=== PATIENT | female | born 1945 | race Caucasian/White ===

== ENCOUNTER 2017-07-25 15:43 | Emergency (ER) | payer MEDICARE ==
[2017-07-25] MEDS ORDERED: IOPAMIDOL-370 75 ML VIAL IV ONE (18:59)
[2017-07-25 19:03] LABS: BASOPHILS % (AUTO) 0.7 % (0.0-5.0); EOSINOPHILS % (AUTO) 2.2 % (0.0-8.0); HEMATOCRIT 46.6 % (36-48); LYMPHOCYTES % (AUTO) 15.3 % (21.0-51.0); MEAN CORPUSCULAR HEMOGLOBIN 29.6 pg (27.0-33.0); MEAN CORPUSCULAR HGB CONC 34.2 g/dL (32.0-36.0); MEAN CORPUSCULAR VOLUME 86.6 fL (79-99); MONOCYTES % (AUTO) 12.4 % (3.0-13.0); NEUTROPHILS % (AUTO) 69.4 % (40.0-77.0); PLATELET COUNT (AUTO) 200 K/uL (130-400); RED BLOOD CELL COUNT(AUTO) 5.38 MIL/uL (4.00-5.50); RED CELL DISTRIBUTION WIDTH 13.5 % (11.0-15.5); WHITE BLOOD COUNT (AUTO) 7.8 K/uL (4.8-10.8)
[2017-07-25 19:12] LABS: CREATININE 1.5 mg/dL (0.5-1.5); POTASSIUM 4.1 mmol/L (3.5-5.1)
[2017-07-25 19:17] LABS: BILIRUBIN,DIRECT 0.1 mg/dL (0.0-0.3); BILIRUBIN,TOTAL 0.5 mg/dL (0.2-1.0); TOTAL PROTEIN, SERUM 6.9 g/dL (6.0-8.3)
[2017-07-25] MEDS ORDERED: SODIUM CHLORIDE 0.9% 500ML 500 ML IV ONE (19:49)
[2017-08-03] MEDS ORDERED: ALBU6.7H IH (15:26)
[2017-08-03] MEDS ORDERED: SPIR50TA3 PO (15:26)
[2017-08-03] MEDS ORDERED: LEVO125T11 PO (15:26)
[2017-08-03] MEDS ORDERED: HYDR200T4 PO (15:26)
[2017-08-03] MEDS ORDERED: OMEP20TA2 PO (15:26)
[2017-08-03] MEDS ORDERED: BUPR-47 PO (15:26)
[2017-08-03] MEDS ORDERED: LEVO125 PO (15:28)
[2017-08-04] MEDS ORDERED: CYAN1000I IM (07:24)
[2017-08-04] MEDS ORDERED: LID5O TP (07:26)
[2017-08-04] MEDS ORDERED: CHOL100040 PO (07:27)
== END 2017-07-25 21:07 | disposition home or self-care (01) ==
LOC: EDH 15:43
DX: R19.09 Other intra-abdominal and pelvic swelling, mass and lump (principal); R60.0 Localized edema; I10 Essential (primary) hypertension; E78.5 Hyperlipidemia, unspecified; E07.9 Disorder of thyroid, unspecified; K21.9 Gastro-esophageal reflux disease without esophagitis; M19.90 Unspecified osteoarthritis, unspecified site; J45.909 Unspecified asthma, uncomplicated; Z88.6 Allergy status to analgesic agent; Z98.890 Other specified postprocedural states
CPT/HCPCS: 36415; 72193; 73701; 80048; 80076; 83690; 85025; 93971; 96360; 99285; J7040; Q9967

== ENCOUNTER → 2018-07-05 | Outpatient (CLI) | payer MEDICARE ==
[~2018-07-05] MED LIST: ALBU6.7H IH; BUPR-47 PO; CHOL100040 PO; CYAN1000I IM; HYDR200T4 PO; LEVO125 PO; LID5O TP; OMEP20TA2 PO; SPIR50TA5 PO
== END | disposition home or self-care (01) ==
LOC: OIH 13:03
PROVIDERS: ATTEND Internal Medicine
DX: M17.0 Bilateral primary osteoarthritis of knee (principal); M19.071 Primary osteoarthritis, right ankle and foot; M19.072 Primary osteoarthritis, left ankle and foot; M19.042 Primary osteoarthritis, left hand; M19.041 Primary osteoarthritis, right hand; M06.4 Inflammatory polyarthropathy
CPT/HCPCS: 73120; 73560; 73620

== ENCOUNTER → 2023-05-12 | Outpatient (CLI) | payer MEDICARE ==
[~2023-05-12] MED LIST changes: -ALBU6.7H IH; +ALBU6.7H14 IH; -BUPR-47 PO; +BUPR-49 PO; -HYDR200T4 PO; +HYDR200T75 PO
== END | disposition home or self-care (01) ==
LOC: RAH 08:00
PROVIDERS: ATTEND Family Medicine Adult Medicine
DX: S80.12XA Contusion of left lower leg, initial encounter (principal); S70.02XA Contusion of left hip, initial encounter; K57.90 Diverticulosis of intestine, part unspecified, without perforation or abscess without bleeding; X58.XXXA Exposure to other specified factors, initial encounter; Y93.89 Activity, other specified; Y92.89 Other specified places as the place of occurrence of the external cause; Y99.8 Other external cause status
CPT/HCPCS: 73718; 73721

== ENCOUNTER → 2023-08-18 | Outpatient (CLI) | payer MEDICARE | END | disposition home or self-care (01) | LOC: RAH 09:57 | PROVIDERS: ATTEND Family Medicine Adult Medicine | DX: K80.20 Calculus of gallbladder without cholecystitis without obstruction (principal); I65.23 Occlusion and stenosis of bilateral carotid arteries | CPT/HCPCS: 76700; 93880 ==

== ENCOUNTER 2025-03-01 12:38 | Emergency (ER) | payer MEDICARE ==
[~2025-03-01] VITALS: Ht 162.6 cm; Wt 78.9 kg
--- NOTE | 2025-03-01 13:01 | ERN ---
General Chief Complaint: Fatigue Stated Complaint: FATIGUE Time Seen by MD: 12:54 History of Present Illness Initial Comments 79-year-old female, history of aortic valve replacement (noninvasive) in March of 2024. Reports dyspnea since her procedure. She reports chest tightness and difficulty taking deep respirations. She reports that this has been going on for months now, but it has been worsening. She is now at a point where she can not walk up to the car without getting short of breath. She is having difficulty sleeping. No swelling. No fevers or cough. She describes it as a chest tightness and inability to take a deep breath. She reports she has gone to a scanner supervisor and had multiple studies done. They were treating her as an asthmatic. She went to her machine heel builder earlier today and was sent here for evaluation. Vital signs are stable. Allergies: Coded Allergies: codeine (Unverified Allergy, Unknown, 08/03/17) latex (Unverified Allergy, Unknown, 08/03/17) Home Meds Reported Medications Cholecalciferol (Vitamin D3) (Vitamin D3) 1,000 Unit Capsule, 1000 UNIT PO AM, CAP 08/04/17 Lidocaine HCl (Lidocaine HCl 5% Oint 36Gm) 1 Appl/Gm Oint, 1 APPL TP BID PRN for PAIN LEVEL 1 TO 5, APPL 08/04/17 Cyanocobalamin (Vitamin B-12) 1,000 Mcg/Ml Inj, 1000 MCG IM QMONTH, ML 08/04/17 Levothyroxine Sodium (Levothroid/Synthroid) 125 Mcg Tab, 125 MCG PO DAILY, TAB 08/03/17 Bupropion HCl (Bupropion Xl) 150 Mg Tab.er.24h, 150 MG PO BID, TAB 08/03/17 Hydroxychloroquine Sulfate (Hydroxychloroquine Sulfate) 200 Mg Tablet, 200 MG PO BID, TAB 08/03/17 Albuterol Sulfate (Proventil Hfa) 6.7 Gm Hfa.aer.ad, 1 PUFF IH Q6HPRN 08/03/17 Spironolactone (Spironolactone) 50 Mg Tablet, 50 MG PO DAILY, TAB 08/03/17 Omeprazole Magnesium (Prilosec Otc) 20 Mg Tablet.dr, 20 MG PO DAILY, TAB 08/03/17 Past Medical History Past Medical History: Arthritis, Diabetes-Type II, High Cholesterol, Heart Disease, Hypertension Past Surgical History: Other Surgical History Other: AORTIC VALVE REPLACEMENT ROS Dictation CONSTITUTIONAL: No chills, no fever, no weakness, no diaphoresis, no malaise. HEAD/FACE: No signs of trauma. EENT: No eye pain, no blurred vision, no tearing, no double vision, no ear pain, no ear discharge, no nose pain, no nasal congestion, no throat pain, no throat swelling, no mouth pain. RESPIRATORY: Dyspnea, chest tightness CARDIOVASCULAR: No chest pain, no edema, no palpitations, no syncope. GASTROINTESTINAL/ABDOMINAL: No abdominal pain, no constipation, no diarrhea, no nausea, no vomiting. GENITOURINARY: No abnormal discharge, no dysuria, no frequent urination, no hematuria. No complaints of pain in the genitals. MUSCULOSKELETAL: No back pain, no gout, no joint pain, no joint swelling, no muscle pain, no muscle stiffness, no neck pain. INTEGUMENTARY: No change in color, no change in hair/nails, no dryness, no lesion, no lumps, no rash. NEUROLOGICAL/PSYCH: No anxiety, not depressed, no emotional problem, no headache, no numbness, no pre-existing deficit, no history of seizures, no tremors, no weakness. HEMATOLOGIC/LYMPHATIC: Not anemic, no history of blood clots, no apparent bleeding, no bruising, glands not swollen. All Systems Negative, Except as Noted. Physical Exam Physical Exam Dictation VITAL SIGNS: Reviewed. GENERAL APPEARANCE: Alert, oriented x3, no acute distress. HEAD AND FACE: Non-traumatic. EYES: PERRL, pink conjunctivas, eyelid no trauma, anterior chamber clear. EARS: Pinnas intact and no signs of trauma or erythema. Ear canals clear and no discharge. TMs no erythema. NOSE: No discharge, no bleeding. OROPHARYNX: Mouth normal, teeth no caries, tongue pink. Pharynx clear, no erythema. Tonsils no exudates, no abscesses noted. Mucous membrane moist. NECK: Supple, non-tender, no thyromegaly, no masses, no JVD, no bruits. BREAST: Deferred. CHEST: No tenderness, no crepitus, no paradoxical movement, no retractions. LUNGS: Clear, well-ventilated, symmetric, no rales, no wheezing, no rhonchi, no stridor, good breath sounds bilaterally. HEART: Regular rate, regular rhythm, no murmur, no gallops. VASCULAR: No peripheral edema. ABDOMEN: Soft, positive bowel sounds, nondistended, no guarding, nontender, no rebound, no masses no hepatomegaly, no splenomegaly, no Fletcher's sign, no hernias. RECTAL: Deferred. GENITAL: Deferred. NEUROLOGICAL: Normal speech, gross motor function intact, gross sensory function intact. MUSCULOSKELETAL: Neck nontender, full range of motion, back nontender, full range of motion. EXTREMITIES: Nontender, full range of motion. SKIN: Color pink, dry, no turgor, no rash, no lacerations, no abrasions, no contusions. LYMPHATICS: Deferred. Results Laboratory and Microbiology Lab and Micro Result Laboratory Tests Test 03/01/25 13:24 03/01/25 13:50 White Blood Count 7.7 K/uL (4.8-10.8) Red Blood Count 4.66 MIL/uL (4.00-5.50) Hemoglobin 13.7 g/dL (12.0-16.0) Hematocrit 41.8 % (36-48) Mean Corpuscular Volume 89.7 fL (79-99) Mean Corpuscular Hemoglobin 29.4 pg (27.0-33.0) Mean Corpuscular Hemoglobin Concent 32.8 g/dL (32.0-36.0) Red Cell Distribution Width 12.9 % (11.0-15.5) Platelet Count 129 K/uL (130-400) L Mean Platelet Volume 9.6 fL (7.5-10.5) Immature Granulocyte % (Auto) 0.4 % (0-1) Neutrophils (%) (Auto) 69.5 % (40.0-77.0) Lymphocytes (%) (Auto) 16.5 % (21.0-51.0) L Monocytes (%) (Auto) 10.1 % (3.0-13.0) Eosinophils (%) (Auto) 3.0 % (0.0-8.0) Basophils (%) (Auto) 0.5 % (0.0-5.0) Neutrophils # (Auto) 5.4 K/uL (1.8-7.7) Lymphocytes # (Auto) 1.3 K/uL (1.0-4.8) Monocytes # (Auto) 0.8 K/uL (0.1-1.0) Eosinophils # (Auto) 0.23 K/uL (0.00-0.70) Basophils # (Auto) 0.04 K/uL (0.00-0.20) Absolute Immature Granulocyte (auto 0.03 K/uL (0-1) Nucleated Red Blood Cells 0.0 % (0.0-0.19) Erythrocyte Sedimentation Rate 11 MM/HR (0-30) D-Dimer Quantitative (PE/DVT) 1734 ng/mL (0-500) *H Sodium Level 138 mmol/L (136-145) Potassium Level 4.3 mmol/L (3.5-5.1) Chloride Level 102 mmol/L (101-111) Carbon Dioxide Level 26 mmol/L (21-32) Blood Urea Nitrogen 21 mg/dL (7-18) H Creatinine 1.3 mg/dL (0.5-1.0) H Glomerular Filtration Rate Calc 42 mL/min (>90) Random Glucose 127 mg/dL (70-105) H Total Calcium 9.6 mg/dL (8.5-10.1) Total Creatine Kinase 55 U/L (21-232) Troponin I High Sensitivity 12.6 ng/L (4-50) C-Reactive Protein, Quantitative < 0.50 mg/L (0.5-3.0) L B-Type Natriuretic Peptide 18 pg/mL (0-100) Blood Gas Specimen Type Arterial Arterial Blood pH 7.547 (7.350-7.450) Arterial Blood Partial Pressure CO2 22 mmHg (32-45) L Arterial Blood Partial Pressure O2 96.7 mmHg (83.0-108.0) Arterial Blood HCO3 18.6 mmol/L (21.0-28.0) L Arterial Blood Oxygen Saturation 98.2 % (94.0-98.0) H Arterial Blood Base Excess -1.5 mmol/L (-2.0-3.0) Blood Gas Temperature 37.0 CELSIUS (35.5-37.0) Blood Gas Vent Mode RA (ROOM AIR) FiO2 21.0 % Blood Gas Specimen Comment RRWORTH MDM CC: dyspnea Historian: patient Comorbidities: . His, diabetes, dyslipidemia, hypertension, CAD, aortic valve replacement Limitations by social determinants of health: None Differential diagnosis: PE, ACS, tamponade, femur fibrosis, lung disease, other. Vital signs: He is mildly tachypneic breathing 20 4 times a minute otherwise vital signs are stable and remained stable in the ER. ABG per my independent interpretation: PH 7.5, pCO2 21, PaO2 96, Bicarb 18.6, base excess-1.5. Respiratory alkalosis. Labs: CBC normal, BMP stable, CK is normal troponin is normal CRP is negative ESR is negative BNP is negative. D-dimer is elevated 1734 EKG: Sinus rhythm rate of 87 normal axis good R-wave progression intervals are stable no STEMI. The CT angiogram shows no acute intrathoracic findings there is a masslike structure in the right breast which is unchanged from prior exam. No pleural effusions pneumothorax or lymphadenopathy. Patient already has steroids and nebulizers at home she has been worked up for this. She was sent by her machine heel builder to ensure there was no major abnormali ties. Normal troponin normal labs normal EKG normal CT angiogram. I offerred admission for further workup, but the patient reports that she has outpatient specialists that she prefers to visit. She already has a scheduled follow up appointment. We will DC. ED Course Orders Procedure Category Date Status Time Arterial Blood Gas RT 03/01/25 Transmitted 12:55 Cbc With Differential LAB 03/01/25 Complete 12:55 Cardiac Panel LAB 03/01/25 Complete 12:55 Chest 1vw RAD 03/01/25 Resulted 12:55 12 Lead Ekg Tracing- EKG 03/01/25 Complete Technical 12:55 Ipratropium/Albuterol PHA 03/01/25 Complete Neb (Duoneb) 13:00 Methylprednisolone PHA 03/01/25 Complete Succ 125mg (Solu-Medr 13:00 Basic Metabolic Panel LAB 03/01/25 Complete 12:55 B-Type Natriuretic LAB 03/01/25 Complete Peptide 12:55 Crp Quantitative LAB 03/01/25 Complete 12:55 Erythrocyte Sed Rate LAB 03/01/25 Complete 12:55 D-Dimer LAB 03/01/25 Complete 12:55 Arterial Blood Gas LAB 03/01/25 Complete 13:50 Ct Chest Pe Protocol CT 03/01/25 Resulted Wwo Cont 14:13 Iohexol (Omnipaque) PHA 03/01/25 Complete 15:02 Iohexol (Omnipaque) PHA 03/01/25 Complete 15:49 Current Medications Medications (Trade) Dose Ordered Sig/Marian Route PRN Reason Start Time Stop Time Status Last Admin Dose Admin Albuterol (DUOneb) 1 udvial ONCE ONCE IH 03/01/25 13:00 03/01/25 13:01 DC Iohexol (Omnipaque) 75 ml STK-MED ONCE IV 03/01/25 15:02 03/01/25 15:02 DC Iohexol (Omnipaque) 75 ml STK-MED ONCE IV 03/01/25 15:49 03/01/25 15:49 DC Methylprednisolone Sodium Succinate (Solu-medROL 125MG) 125 mg ONCE ONCE IVP 03/01/25 13:00 03/01/25 13:01 DC 03/01/25 15:07 Vital Signs Date Time Temp Pulse Resp B/P (MAP) Pulse Ox O2 Delivery O2 Flow Rate FiO2 03/01/25 17:32 98.1 69 20 145/82 99 Room Air* 0 21 03/01/25 15:58 98.1 139/75 Room Air* 0 21 03/01/25 12:41 98.1 89 24 125/78 99 Room Air DX & DISP Disposition: Discharge Departure Impression: Primary Impression: Dyspnea Condition: Stable Additional Instructions: There are no major findings on your workup here today. Your ABG is stable. Your oxygen level is stable. Your EKG is stable. Your chest x-ray is stable. Your blood work (CBC with differential, metabolic panel, troponin, CK, ESR, CRP) is unremarkable. He did have a mildly elevated D-dimer. You had a CT angiogram of your chest. Does not show any major lung abnormalities or any signs of blood clotting. There is a mass on your breasts which you can follow up with the primary doctor about. Please continue with all home medications. Please follow up with the primary doctor. Return to the emergency department as needed. Referrals: ROSALIO LLANES (PCP) ELIEZER HANNAH DO Mar 01, 2025 13:01
--- NOTE | 2025-03-01 13:15 | EKG ---
[facility] Test Date: 2025-03-01 Test Time: 13:08:13 Pat Name: MARISOL AVILES Department: [facility] Room: Gender: F [employer]: [id number] : 1945 Requested By: ELIEZER HANNAH Order Number: [id number] Reading MD: Latonia Cleveland Measurements Intervals [place] Rate: 87 P: 21 ME: 187 QRS: 229 QRSD: 100 T: 3 QT: 381 QTc: 458 Interpretive Statements Sinus rhythm Inferior infarct, old Compared to ECG 04/06/2024 11:24:29 Myocardial infarct finding now present Left-axis deviation no longer present Electronically Signed On 03-03-2025 08:38:54 CDT by Latonia Cleveland Please click the below link to view image of tracing.
[2025-03-01 13:30] LABS: IMMATURE GRANULOCYTE ABSOLUTE 0.03 K/uL (0-1); NUCLEATED RED BLOOD CELLS 0.0 % (0.0-0.19); PLATELET COUNT (AUTO) 129 K/uL (130-400); RED BLOOD CELL COUNT(AUTO) 4.66 MIL/uL (4.00-5.50); RED CELL DISTRIBUTION WIDTH 12.9 % (11.0-15.5); WHITE BLOOD COUNT (AUTO) 7.7 K/uL (4.8-10.8)
[2025-03-01 13:43] LABS: CREATININE 1.3 mg/dL (0.5-1.0); GLOMERULAR FILTR. RATE CALC 42 mL/min (>90); GLUCOSE,RANDOM 127 mg/dL (70-105); SODIUM SERUM 138 mmol/L (136-145); UREA NITROGEN, BLOOD 21 mg/dL (7-18)
[2025-03-01 13:46] LABS: ERYTHROCYTE SEDIMENTATION RATE 11 MM/HR (0-30)
[2025-03-01 13:50] LABS: CREATINE KINASE, TOTAL 55 U/L (21-232)
[2025-03-01 13:51] LABS: ABG BASE EXCESS -1.5 mmol/L (-2.0-3.0); ABG HCO3 18.6 mmol/L (21.0-28.0); ABG OXYGEN SATURATION 98.2 % (94.0-98.0); ABG PCO2 22 mmHg (32-45); ABG PH 7.547 (7.350-7.450); DEVICE COMMENT RRWORTH; PO2, ARTERIAL BG 96.7 mmHg (83.0-108.0); TEMPERATURE, CELSIUS BG 37.0 CELSIUS (35.5-37.0); VENT MODE, BG RA (ROOM AIR)
[2025-03-01] MEDS ORDERED: IOHEXOL-350 75 ML VIAL IV ONE ×2 (15:02→15:49)
--- NOTE | 2025-03-01 15:27 | HMCIMG ---
EXAM: CR Chest, 1 View. CLINICAL HISTORY: Dyspnea/SOB COMPARISON: None provided. FINDINGS: LUNGS: There is no mass, infiltrate, or acute pulmonary abnormality. PLEURAL SPACES: No pleural effusion or pneumothorax. MEDIASTINUM: Cardiac size and mediastinal contours within normal limits. Vascular aortic stent BONES: No aggressive appearing osseous lesion seen. IMPRESSION: No acute cardiopulmonary pathology is evident. /[place]
--- NOTE | 2025-03-01 16:42 | HMCIMG ---
Exam: CTA Chest Technique: Multiplanar imaging was performed from the thoracic inlet through the diaphragms during the injection of Intravenous Contrast. CT scan performed according to ALARA principles. Automated exposure control used during exam. Contrast utilized: IV contrast History: Elevated D-dimer. Dyspnea Comparison: CT chest without contrast 04/06/2024 Findings: Contrast opacification is adequate. There are no main or segmental pulmonary artery filling defects. The thoracic aorta is normal in appearance. The heart is normal in size. No significant coronary artery calcification. No pericardial abnormality is seen. Stent at the root of the aorta There is a 2 mm calcified chronic granuloma within the superior segment of the right lower lung. There is mild left lung base linear atelectasis versus scarring. The lungs are otherwise clear There is no pleural effusion, pneumothorax or lymphadenopathy. No chest wall abnormality. Subcentimeter simple cyst within the inferior pole of the left kidney multilevel degenerative changes of the thoracic and included portions of the lumbar spine Masslike structure within the right breast not significantly changed compared with the prior exam. Marked fatty replacement of the pancreas, unchanged. IMPRESSION: 1. No acute intrathoracic findings. 2. Masslike structure in right breast, unchanged from prior exam. /[place]
[2025-03-01 17:32] VITALS: BP 145/82; PULSE 69; RESP 20; TEMP 98.1; O2SAT 99
== END 2025-03-01 17:51 | disposition home or self-care (01) ==
LOC: EDH 12:38
DX: R06.00 Dyspnea, unspecified (principal); E11.9 Type 2 diabetes mellitus without complications; E78.00 Pure hypercholesterolemia, unspecified; I11.9 Hypertensive heart disease without heart failure; M19.90 Unspecified osteoarthritis, unspecified site; Z79.890 Hormone replacement therapy; Z79.899 Other long term (current) drug therapy; Z88.5 Allergy status to narcotic agent; Z91.040 Latex allergy status; Z95.2 Presence of prosthetic heart valve
CPT/HCPCS: 99285; 96374; 71270; 71045; 82550; 84484; 80048; 82803; 83880; 85025; 85378; 85651; 86140; 36415; 93005; 36600; J2919; Q9967 ×2

== ENCOUNTER → 2025-03-02 | Outpatient (CLI) | payer MEDICARE ==
[2025-03-02 13:37] LABS: ABG BASE EXCESS -5.8 mmol/L (-2.0-3.0); ABG HCO3 15.7 mmol/L (21.0-28.0); ABG OXYGEN SATURATION 97.6 % (94.0-98.0); ABG PCO2 22 mmHg (32-45); ABG PH 7.470 (7.350-7.450); CARBON MONOXIDE 0.7 % (0.5-1.5); PO2, ARTERIAL BG 96.9 mmHg (83.0-108.0); TEMPERATURE, CELSIUS BG 37.0 CELSIUS (35.5-37.0)
[2025-03-02 13:39] LABS: IMMATURE GRANULOCYTE ABSOLUTE 0.14 K/uL (0-1); NUCLEATED RED BLOOD CELLS 0.0 % (0.0-0.19); PLATELET COUNT (AUTO) 165 K/uL (130-400); RED BLOOD CELL COUNT(AUTO) 4.64 MIL/uL (4.00-5.50); RED CELL DISTRIBUTION WIDTH 12.8 % (11.0-15.5); WHITE BLOOD COUNT (AUTO) 19.2 K/uL (4.8-10.8)
[2025-03-02 14:04] LABS: ASPARTATE AMINOTRANSFERASE 12.0 U/L (10-37); CREATININE 1.4 mg/dL (0.5-1.0); GLOMERULAR FILTR. RATE CALC 39.0 mL/min (>90); GLUCOSE,RANDOM 225.0 mg/dL (70-105); SODIUM SERUM 138.0 mmol/L (136-145); TOTAL PROTEIN, SERUM 6.9 g/dL (6.0-8.3); UREA NITROGEN, BLOOD 27.0 mg/dL (7-18)
== END | disposition home or self-care (01) ==
LOC: RAH 12:41
PROVIDERS: ATTEND Internal Medicine Cardiovascular Disease
DX: I10 Essential (primary) hypertension (principal); I35.0 Nonrheumatic aortic (valve) stenosis; R00.2 Palpitations; R06.09 Other forms of dyspnea; R07.9 Chest pain, unspecified
CPT/HCPCS: 36415; 36600; 80053; 82435; 82803; 82947; 83605; 83880; 84132; 84295; 84439; 84443; 84481; 85018; 85025